=== PATIENT | female | born 1975 | race Caucasian/White ===

== ENCOUNTER 2019-11-11 16:03 | Outpatient (CLI) | payer BC, SELFPAY ==
--- NOTE | ~2019-11-11 | MM_ITS ---
EXAMINATION: MM screening [facility]man BI w shila HISTORY: Screening TECHNIQUE: Craniocaudal and mediolateral oblique 3-D tomosynthesis images were obtained and synthetic 2-D images were generated. CAD analysis was submitted and interpreted. COMPARISON: Comparison to multiple prior studies sequentially, with oldest reviewed study dated 12/09. BREAST PARENCHYMAL COMPOSITION: There are scattered areas of fibroglandular density. FINDINGS: There is no evidence of suspicious mass, calcification, or architectural distortion to sugg est malignancy in either breast. There has been no suspicious interval change. IMPRESSION: 1. No mammographic evidence of malignancy. 2. Recommend routine screening mammography in one year. BI-RADS Category 1: Negative Reviewed, dictated and finalized at location A.
== END 2019-11-11 16:04 | disposition home or self-care (01) ==
LOC: ANHIMG 16:05
PROVIDERS: PCP Internal Medicine; Visit Provider Obstetrics & Gynecology Gynecology
DX: Z12.31 Encounter for screening mammogram for malignant neoplasm of breast (principal)
CPT/HCPCS: 77063; 77067

== ENCOUNTER 2021-01-11 14:08 | Outpatient (CLI) | payer OTHER, SELFPAY ==
--- NOTE | ~2021-01-11 | MM_ITS ---
EXAMINATION: MM screening [facility]man BI w shila HISTORY: Screening TECHNIQUE: Craniocaudal and mediolateral oblique 3-D tomosynthesis images were obtained and synthetic 2-D images were generated. CAD analysis was submitted and interpreted. COMPARISON: Comparison to multiple prior studies sequentially, with oldest reviewed study dated 04/24. BREAST PARENCHYMAL COMPOSITION: There are scattered areas of fibroglandular density. FINDINGS: There is no evidence of suspicious mass, calcification, or architectural distortion to sugg est malignancy in either breast. There has been no suspicious interval change. IMPRESSION: 1. No mammographic evidence of malignancy. 2. Recommend routine screening mammography in one year. BI-RADS Category 1: Negative Reviewed, dictated and finalized at location A.
== END 2021-01-11 14:09 | disposition home or self-care (01) ==
LOC: ANHIMG 14:10
PROVIDERS: PCP Internal Medicine; Visit Provider Obstetrics & Gynecology Gynecology
DX: Z12.31 Encounter for screening mammogram for malignant neoplasm of breast (principal)
CPT/HCPCS: 77063; 77067

== ENCOUNTER 2021-01-16 11:30 | Emergency (ER) | payer OTHER, SELFPAY ==
[2021-01-16 11:40] VITALS: BP 136/84; PULSE 88; RESP 16; TEMP 36.4; O2SAT 99
--- NOTE | 2021-01-16 12:20 | ED.SKABFB ---
HPI - Skin/Abscess/Foreign Bdy General Chief complaint: Extremity Injury, Lower Stated complaint: Left foot Pain Time Seen by Provider: 01/16/21 11:55 Source: patient and RN notes reviewed Mode of arrival: ambulatory Limitations: no limitations History of Present Illness HPI narrative: Patient presents today complaining of blister to the dorsum of the left foot between the fourth and fifth toe that has been present for the last 2 weeks and has been worsening since onset. It is now red and the redness spreading up the foot. History of hidradenitis suppurativa in the axillae. MD complaint: abscess/boil Related Data Home Medications Medication Instructions Recorded Confirmed lorazepam 0.5 mg tablet 0.5 mg PO DAILY PRN 03/03/19 10/18/20 Allergies Allergy/AdvReac Type Severity Reaction Status Date / Time No Known Allergies Allergy Unknown Verified 12/30/20 15:09 Review of Systems Review of Systems: CONSTITUTIONAL: Denies body aches, fever, chills, or sweats. EYES: Denies visual changes, redness, or discharge. ENT: Denies rhinorrhea, congestion, sore throat, or otalgia. CARDIOVASCULAR: Denies chest pain, palpitations, or edema. RESPIRATORY: Denies cough or dyspnea. GASTROINTESTINAL: Denies abdominal pain, nausea, vomiting, or diarrhea. GENITOURINARY: Denies dysuria or hematuria. SKIN: Denies rash, itching, or wounds.+ Blister to left foot MUSCULOSKELETAL: Denies back pain, joint pain, or myalgia. NEUROLOGIC: Denies headache, numbness, tingling, or weakness. PSYCH: Denies depression or anxiety. [facility] Family History Family History Mother Hypertension Father Family history of malignant neoplasm Patient's father is Other Cerebrovascular accident Other Diabetes mellitus Social History Social History Smoking packs per day: 1 Smoking cigarettes per day: 20.0 Years smoked: 15 Smoking pack-years: 15.00 Smoking status: Current some day smoker Second hand tobacco smoke exposure: Yes Smoking end date: 03/11/06 Alcohol intake: current Comments At time of signature, I have reviewed and agree with nursing past medical, surgical, social and family history unless otherwise noted. Please see nursing chart for further information. There is no relevant family history pertinent to the presenting complaint Exam Narrative: GENERAL: Well-appearing, well-nourished, and in no acute distress. HEAD: Normocephalic, atraumatic. EYES: EOMI. No redness or drainage. Conjunctivae normal. ENT: Mucous membranes pink and moist. NECK: Normal AROM. CHEST: No respiratory distress. EXTREMITIES: Normal range of motion. No edema. SKIN: Warm, dry, no rash. Capillary refill normal. Normal skin turgor. 1 cm erythematous fluctuant area to the base of the fourth and fifth toes with surrounding erythema spreading proximally. Tender to palpation. Distal sensation intact. Capillary refill normal. Pedal pulse normal. Full range of motion of all toes. NEURO: No focal deficits. Alert and oriented x3. Gait steady. PSYCH: Normal affect. No signs of depression or anxiety. Course Vital Signs Vital signs: Vital Signs Temperature 97.6 F 01/16/21 11:40 Pulse Rate 88 01/16/21 11:40 Respiratory Rate 16 01/16/21 11:40 Blood Pressure 136/84 01/16/21 11:40 Pulse Oximetry 99 01/16/21 11:40 Temperature 97.6 F 01/16/21 11:40 Pulse Rate 88 01/16/21 11:40 Respiratory Rate 16 01/16/21 11:40 Blood Pressure 136/84 01/16/21 11:40 Pulse Oximetry 99 01/16/21 11:40 Reviewed. Pt has been instructed to follow up with her PCP regarding her elevated blood pressure today. Procedures Abscess I/D lower extremity: Date of Incision: 01/16/21 Side (if applicable): left (Foot) Local Anesthetic: lidocaine 1% Amount of anesthesia used (mL): 1
== END 2021-01-16 12:50 | disposition home or self-care (01) ==
PROVIDERS: Emergency Provider Nurse Practitioner; PCP Internal Medicine
DX: L02.612 Cutaneous abscess of left foot (principal); F17.210 Nicotine dependence, cigarettes, uncomplicated
CPT/HCPCS: 10060; 99213; G0463

== ENCOUNTER 2021-12-10 08:11 | Emergency (ER) | payer OTHER, SELFPAY ==
--- NOTE | ~2021-12-10 | XR_ITS ---
EXAMINATION: XR ankle RT min 3V DATE: 12/10/2021 08:34 INDICATION: Twisting right ankle injury with lateral sided swelling TECHNIQUE: Anteroposterior, oblique, mortise, and lateral views of the right ankle were obtained. COMPARISON: None. FINDINGS: Nondisplaced transverse intra-articular fracture at the base of the right fifth metatarsal without . Alignment remains near-anatomic. No other fractures identified. Joint spaces are normal. Plantar calc aneal spur.Soft tissue swelling about the lateral malleolus and the lateral mid to hindfoot. No right ankle joint effusion. IMPRESSION: 1. Nondisplaced intra-articular fracture at the base of the right fifth metatarsal. Reviewed, dictated and finalized at location A. IMPRESSION: 1. Nondisplaced intra-articular fracture at the base of the right fifth metatar nga.
[2021-12-10 08:24] VITALS: BP 162/83; PULSE 115; RESP 18; TEMP 36.6; O2SAT 99
--- NOTE | 2021-12-10 08:39 | ED.GENADULT ---
HPI - General Adult General Chief complaint: Extremity Injury, Lower Stated complaint: rt ankle popped Source: patient Mode of arrival: ambulatory Limitations: no limitations History of Present Illness HPI narrative: Patient presents for evaluation of right ankle pain since this morning. Symptoms balcony when she fell down 3 steps. She twisted her right ankle. She did not hit her head nor have loss of consciousness. She is not on blood thinners. She reports some minor dull aching sensation in her right shoulder. She reports swelling, bruising and pain in the right ankle. Pain is moderate in severity, without numerical rating but worse with weightbearing. She has a scooter that she is using to mobilize. No paresthesias. No loss of ROM. No additional complaints or concerns Related Data Home Medications Medication Instructions Recorded Confirmed doxycycline hyclate 100 mg tablet 100 mg PO DAILY 12/10/21 12/10/21 Allergies Allergy/AdvReac Type Severity Reaction Status Date / Time No Known Allergies Allergy Unknown Verified 12/10/21 08:28 Review of Systems Review of Systems: CONSTITUTIONAL: Denies fever, chills, or sweats. EYES: Denies visual changes, redness, or discharge. ENT: Denies rhinorrhea, congestion, sore throat, or otalgia. CARDIOVASCULAR: Denies chest pain, palpitations, or edema. RESPIRATORY: Denies cough or dyspnea. GASTROINTESTINAL: Denies abdominal pain, nausea, vomiting, or diarrhea. GENITOURINARY: Denies dysuria or hematuria. SKIN: Reports bruising in right ankle MUSCULOSKELETAL: Reports pain in right shoulder. Reports pain and swelling in right ankle NEUROLOGIC: Denies headache, numbness, dizziness, or weakness. PSYCHIATRIC: Denies anxiety or depression. [facility] Past Medical History Medical History Diabetes Hyperlipidemia Hypertension Surgical History Surgical History History of appendectomy Family History Family History Mother Hypertension Father Family history of malignant neoplasm Patient's father is Other Cerebrovascular accident Other Diabetes mellitus Social History Social History Smoking packs per day: 1 Smoking cigarettes per day: 20.0 Years smoked: 15 Smoking pack-years: 15.00 Second hand tobacco smoke exposure: Yes Smoking end date: 03/11/06 Alcohol intake: current Exam Narrative: GENERAL: Well-appearing, well-nourished, and in no acute distress. HEAD: Normocephalic, atraumatic. EYES: PERRLA and EOMI. ENT: Nares clear, no rhinorrhea or epistaxis. Mucous membranes moist. Oropharynx without tonsillar hypertrophy exudate or other lesions. Bilateral TMs pearly odonnell nonbulging NECK: Supple. No adenopathy or masses. No carotid bruits or JVD CHEST: Clear to auscultation. No respiratory distress. No wheezes rales or rhonchi HEART: Regular rate and rhythm. No murmur heard. Normal peripheral pulses. ABDOMEN: Soft, nontender, nondistended, normal active bowel sounds. EXTREMITIES: There is swelling noted to right lateral malleolus with associated tenderness. She is able to dorsi and plantarflex the right foot. Able to wiggle all digits of right foot. Sensation intact SKIN: Mild ecchymosis noted to lateral aspect of right ankle. NEURO: No focal deficits. Alert and oriented x3. PSYCH: Normal mood and affect. Course Course Emergency Course: This is a 46-year-old female who presented for evaluation of right ankle pain following a fall today. X-ray showed nondisplaced fracture of proximal right fifth metatarsal. Placed in posterior short leg OCL. Provided with crutches. Advised on nonweightbearing status. Advised on importance of following up with podiatry. Hydrocodone sent to pharmacy. Pt sh
== END 2021-12-10 09:45 | disposition home or self-care (01) ==
PROVIDERS: Emergency Provider Nurse Practitioner; PCP Internal Medicine
DX: S92.354A Nondisplaced fracture of fifth metatarsal bone, right foot, initial encounter for closed fracture (principal); W10.9XXA Fall (on) (from) unspecified stairs and steps, initial encounter; E11.9 Type 2 diabetes mellitus without complications; E78.5 Hyperlipidemia, unspecified; I10 Essential (primary) hypertension; F17.210 Nicotine dependence, cigarettes, uncomplicated
CPT/HCPCS: 29125; 73610; 99214; G0463

== ENCOUNTER 2022-12-05 15:39 | Outpatient (CLI) | payer OTHER, SELFPAY ==
--- NOTE | ~2022-12-05 | MM_ITS ---
EXAMINATION: MM screening [facility]man BI w shila HISTORY: Screening mammogram TECHNIQUE: Craniocaudal and mediolateral oblique 3-D tomosynthesis images were obtained and synthetic 2-D images were generated. CAD analysis was submitted and interpreted. COMPARISON: 01/11/2021, 11/11/2019, 07/30/2018 bilateral screening mammogram examinations BREAST PARENCHYMAL COMPOSITION: There are scattered areas of fibroglandular density. FINDINGS: There is no evidence of suspicious mass, calcification, or architectural distortion to sugg est malignancy in either breast. There has been no suspicious interval change. IMPRESSION: 1. No mammographic evidence of malignancy. 2. Recommend routine screening mammography in one year. BI-RADS Category 1: Negative Reviewed, dictated and finalized at location A.
== END 2022-12-05 15:40 | disposition home or self-care (01) ==
LOC: ANHIMG 15:52
PROVIDERS: PCP Internal Medicine; Visit Provider Nurse Practitioner
DX: Z12.31 Encounter for screening mammogram for malignant neoplasm of breast (principal)
CPT/HCPCS: 77063; 77067

== ENCOUNTER 2024-02-20 12:48 | Outpatient (CLI) | payer OTHER, SELFPAY ==
--- NOTE | ~2024-02-20 | MMUS_ITS ---
EXAMINATION: MM diagnostic sherman BI w shila, US breast LT limited HISTORY: Discoloration of the left breast. No pain or itching. TECHNIQUE: Additional 3-D tomosynthesis images of the breasts were performed and synthetic 2-D images were generated. CAD analysis was submitted and interpreted. High resolution Limited left breast ultr asound was performed. COMPARISON: Comparison to multiple prior studies sequentially, with oldest reviewed study dated 05/28. BREAST PARENCHYMAL COMPOSITION: Not Dense: The breasts are almost entirely fatty. FINDINGS: MAMMOGRAPHIC FINDINGS: There are no suspicious masses, calcifications or architectural distortion in either breast to sugges t malignancy. ULTRASOUND: Limited left breast ultrasound: Normal heterogeneous echotexture without focal solid or cystic mass. IMPRESSION: 1. No evidence for malignancy in either breast. 2. Routine yearly screening mammogram and regular clinical breast examination are recommended. BI-RADS Category 1: Negative Reviewed, dictated and finalized at location B. [facility] IMPRESSION: 1. No evidence for malignancy in either breast. 2. Routine yearly screening mammogram and regular clinical breast examination a re recommended. BI-RADS Category 1: Negative
== END 2024-02-20 12:49 | disposition home or self-care (01) ==
LOC: ANHIMG 12:49
PROVIDERS: PCP Internal Medicine; Visit Provider Nurse Practitioner Women's Health
DX: N64.59 Other signs and symptoms in breast (principal)
CPT/HCPCS: 76642; 77062; 77066; G0279